=== PATIENT | male | born 2000 | race Caucasian/White ===

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

== ENCOUNTER 2025-02-19 12:13 | Outpatient (CLI) | payer BC, SELFPAY ==
[2025-02-19 15:44] LABS: Hemoglobin A1C 5.0 % (<5.7)
[2025-02-19 15:55] LABS: ALT 20 U/L (10-49); AST 23 U/L (<34); Albumin 4.9 g/dL (3.2-5.0); Alkaline Phosphatase 76 U/L (46-116); Anion Gap 10.1 mmol/L (3-11); BUN 16 mg/dL (9-23); Bilirubin, Total 0.8 mg/dL (0.2-1.2); CO2 28.9 mmol/L (20.0-31.0); Calcium 9.6 mg/dL (8.3-10.6); Chloride 104 mmol/L (98-107); Cholesterol 233 mg/dL (<200); Glucose 86 mg/dL (74-106); HDL Cholesterol 45 mg/dL (>or=40); Potassium 4.1 mmol/L (3.5-5.1); Sodium 143 mmol/L (136-145); TSH (W/Ref FT4) 2.26 uIU/mL (0.55-4.78); Total Protein 7.3 g/dL (5.7-8.2)
[2025-02-19 18:57] LABS: Hepatitis C Ab w Rflx HCV PCR Negative (Negative)
[2025-02-19 18:58] LABS: HIV-1/2 Ag & Ab Screen Negative (Negative)
[2025-02-19 19:54] LABS: Hep A Total Ab w Rflx IgM Negative (Negative)
[2025-02-20 10:41] LABS: HSV Type 2 Ab, IgG Negative (Negative)
[2025-02-20 10:52] LABS: Syphilis Serology (RPR) Negative (Negative)
[2025-02-21 12:19] LABS: Chlamydia Result Negative (Negative); GC Result Negative (Negative)
== END 2025-02-19 12:14 | disposition home or self-care (01) ==
LOC: LBO 12:17
PROVIDERS: PCP Nurse Practitioner Family; Visit Provider Nurse Practitioner Family
DX: Z00.00 Encounter for general adult medical examination without abnormal findings (principal); Z11.3 Encounter for screening for infections with a predominantly sexual mode of transmission
CPT/HCPCS: 36415; 80053; 80061; 86709; 86803; 87340; 87389; 87491; 87591; 83036; 84443; 86592; 86695; 86696